=== PATIENT | male | born 1960 | race Native Hawaiian/Other Pacific Islander ===

== ENCOUNTER → 2017-04-17 | Day surgery (SDC) | payer MEDICARE ==
[2017-04-11 14:53] VITALS: BMI 37.4
[~2017-04-17] MED LIST: ALPRAZolam 0.25 MG TAB PO PRN; ALPRAZolam 0.5 MG TAB PO PRN; ASPIRIN 325 MG TAB PO STA; ATORVASTATIN 80 MG TAB PO STA; LIDOCAINE 2% INJ 20 MG/ML (20 ML MDV) ONE; MIDAZOLAM 2 MG/2 ML VIAL ONE; NITROGLYCERIN SL TABS 0.4 MG TAB SUBLINGUAL PRN; SODIUM CHLORIDE 0.9% 1,000 ML in EMPTY BAG 1 BAG IV ONE; VERAPAMIL 2.5 MG/ML 2 ML AMP ONE; diphenhydrAMINE 50 MG/ML 1 ML VIAL ONE
[2017-04-17 10:52] VITALS: BP 135/88; PULSE 86; RESP 18; TEMP 98.4
[2017-04-17 11:02] LABS: INR 2.7 (<1.2); Prothrombin Time 26.4 sec (9.0-12.0)
== END ==
LOC: CATHCVL 10:02
PROVIDERS: ATTEND Internal Medicine Interventional Cardiology
DX: I42.9 Cardiomyopathy, unspecified (principal); Z53.9 Procedure and treatment not carried out, unspecified reason; Z95.4 Presence of other heart-valve replacement; I05.2 Rheumatic mitral stenosis with insufficiency; I48.2 Chronic atrial fibrillation; I10 Essential (primary) hypertension; E78.5 Hyperlipidemia, unspecified; E66.9 Obesity, unspecified; Z68.36 Body mass index [BMI] 36.0-36.9, adult; I69.959 Hemiplegia and hemiparesis following unspecified cerebrovascular disease affecting unspecified side; Z88.0 Allergy status to penicillin; Z79.01 Long term (current) use of anticoagulants; Z79.899 Other long term (current) drug therapy; Z79.52 Long term (current) use of systemic steroids; Z87.891 Personal history of nicotine dependence
CPT/HCPCS: 85610